=== PATIENT | male | born 1980 | race Two or more races ===

== ENCOUNTER 2020-12-08 17:30 | Emergency (ER) | payer MEDICAID ==
[~2020-12-08] VITALS: Ht 180.3 cm; Wt 89.0 kg
[2020-12-08] MEDS: KETOROLAC 60MG/2ML VIAL IM ONE ×2 (18:28→18:32)
[2020-12-08] MEDS ORDERED: IBUPROFEN 800MG TABLET PO ONE (18:45)
[2020-12-08 18:49] VITALS: BP 132/78
[2020-12-08] MEDS ORDERED: IBUP-2029 MT (19:09)
== END 2020-12-08 19:25 | disposition home or self-care (01) ==
LOC: ER 18:17
DX: S80.12XA Contusion of left lower leg, initial encounter (principal); M79.18 Myalgia, other site; Y93.66 Activity, soccer; Y92.9 Unspecified place or not applicable; Z88.0 Allergy status to penicillin
CPT/HCPCS: 73590; 99283; J1885

== ENCOUNTER 2023-07-23 21:32 | Emergency (ER) | payer MEDICAID ==
[~2023-07-23] VITALS: Ht 182.9 cm; Wt 100.0 kg
[~2023-07-23 21:32] MED LIST: IBUP-2029 MT
[2023-07-23 21:43] VITALS: BP 174/90; PULSE 92; RESP 16; TEMP 98.6; O2SAT 100
== END 2023-07-23 23:40 | disposition left against medical advice (07) ==
LOC: ER 21:32
DX: R41.82 Altered mental status, unspecified (principal); Z53.21 Procedure and treatment not carried out due to patient leaving prior to being seen by health care provider
CPT/HCPCS: 99281